=== PATIENT | male | born 1995 | race Caucasian/White ===

== ENCOUNTER 2021-02-09 15:57 | Emergency (ER) | payer OTHER ==
[~2021-02-09] VITALS: Ht 172.7 cm; Wt 86.4 kg
[2021-02-09 17:38] VITALS: BP 135/83
== END 2021-02-09 18:22 | disposition home or self-care (01) ==
LOC: EMS 15:58
DX: F41.9 Anxiety disorder, unspecified (principal)
CPT/HCPCS: 99283